=== PATIENT | female | born 2005 | race Caucasian/White ===

== ENCOUNTER 2023-03-17 09:29 | Emergency (ER) | payer OTHER, MEDICAID, SELFPAY ==
[2023-03-17 09:31] VITALS: BP 136/102; PULSE 79; RESP 16; TEMP 36.3; O2SAT 97; BMI 24.2
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
[2023-03-17 10:04] LABS: Absolute Lymphocyte Count 1.95 X10^3/uL (0.83-4.51); Absolute Neutrophil Count 5.6 X10^3/uL (2.0-7.7); Basophil# 0.04 X10^3/uL; Basophil% 0.5 % (0-1); Eosinophils% 1.2 % (0-5); Hematocrit 38.7 % (37-47); Hemoglobin 12.1 g/dL (12.0-15.0); Lymphocyte # 1.95 X10^3/ul (0.83-4.51); Lymphocyte % 23.8 % (19-41); Mean Corp Hgb Conc 31.3 g/dL (32-36); Mean Corpuscular Hgb 25.5 pg (27.0-32.0); Mean Corpuscular Volume 81.6 fL (81-99); Mean Platelet Vol. 9.8 fl (6.2-12.0); Monocyte# 0.46 X10^3/uL; Monocyte% 5.6 % (0-10); NRBC Flagged by Analyzer 0 % (0-5); Neutrophil # 5.58 X10^3/uL (2.7-7.7); Neutrophil % 68.3 % (47-70); Platelet Count 518 K/mm3 (150-450); RBC Distribution Width CV 13.2 % (11.6-14.6); RBC Distribution Width SD 39.5 fl (35.1-43.9); Red Blood Count 4.74 M/mm3 (4.2-5.4); White Blood Count 8.2 K/mm3 (4.4-11.0)
[2023-03-17 10:22] LABS: Alcohol, Blood (Medical)-Serum < 3.0 mg/dL
[2023-03-17 10:24] LABS: ALB/GLOB Ratio 0.7 RATIO (0.9-2.4); AST(SGOT) 8 U/L (15-37); Alanine Aminotransfer ALT/SGPT 23 U/L (13-56); Alkaline Phosphatase 76 U/L (45-117); Anion Gap 5 (5-15); BUN 7 mg/dL (7-18); BUN/Creat Ratio 8.5 RATIO (10-20); Calcium,Total 9.3 mg/dL (8.5-10.1); Chloride 106 mmol/L (98-107); Creatinine, Serum 0.82 mg/dL (0.55-1.02); EST Glomerular Filtration Rate 95 mL/min (>60); Est Glom Filt Rate - Afr Amer 114 mL/min (>60); Estimated Creatinine Clearance 115.32 ml/min; Globulin 4.6 g/dL (2.2-4.2); Glucose 95 mg/dL (74-106); Potassium 3.9 mmol/L (3.5-5.1); Protein, Total 7.6 g/dL (6.4-8.2); Sodium Level 138 mmol/L (136-145); hCG Titer Quant., Serum < 1 mIU/mL (1-3)
[2023-03-17 10:28] LABS: Amphetamine Urine VISTA NEGATIVE (<1000 ng/mL); Barbiturate Urine VISTA NEGATIVE (< 200 ng/mL); Benzodiazepine Urine VISTA NEGATIVE (< 200 ng/mL); Cocaine Urine VISTA NEGATIVE (< 300 ng/mL); Ecstacy Urine VISTA NEGATIVE (< 500 ng/mL); Methadone Urine VISTA NEGATIVE (< 300 ng/mL); PCP Urine VISTA NEGATIVE (< 25 ng/mL); THC Urine VISTA NEGATIVE (< 50 ng/mL); Vista UDS pH Range 7
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
[2023-03-17 13:36] VITALS: BP 128/74; PULSE 78; RESP 16; O2SAT 98
--- NOTE | 2023-03-17 14:01 | NURSING ---
[facility]CE [facility] NURSE TO NURSE [phone]
--- NOTE | 2023-03-17 14:08 | CM.ED ---
Social Work SW referred patient to [facility] per patient request. [facility] patient to [address] [place] [address] Caitlin Ventura. Nurse to nurse, and pink slip requested made out to [facility] and faxed. Information given to hospital secretary to schedule transportation. Patient notified of acceptance and denies any other needs at this time. Nadia Edmond FUNERAL DIRECTOR/EMBALMER/OWNER, PRINCIPAL ELECTRICAL ENGINEER
--- NOTE | 2023-03-17 14:16 | NURSING ---
CALLED JUHI, HERE WITHIN THE HOUR
[2023-03-17 14:34] VITALS: BP 124/78; PULSE 73; RESP 196; O2SAT 98
--- NOTE | 2023-03-17 14:35 | ED.RN ---
NURSE TO NURSE CALLED TO [facility]
== END 2023-03-17 15:43 ==
PROVIDERS: Emergency Provider Emergency Medicine; Visit Provider Emergency Medicine
DX: O03.9 Complete or unspecified spontaneous abortion without complication (principal); R45.851 Suicidal ideations
CPT/HCPCS: 80053; 80307; 82077; 84702; 85025; 86900; 86901; 87811; 99284; J7030; A4216